=== PATIENT | male | born 1985 | race Caucasian/White ===

== ENCOUNTER 2019-03-04 19:15 | Emergency (ER) | payer MEDICAID ==
[~2019-03-04] VITALS: Ht 175.3 cm; Wt 128.4 kg
[2019-03-04 19:18] VITALS: BP 151/92; Ht 175.3 cm; Wt 128.4 kg
== END 2019-03-04 19:47 | disposition home or self-care (01) ==
LOC: ED 19:15
DX: S70.12XA Contusion of left thigh, initial encounter (principal); W54.0XXA Bitten by dog, initial encounter; Y93.89 Activity, other specified; Y92.89 Other specified places as the place of occurrence of the external cause; Y99.8 Other external cause status
CPT/HCPCS: 90715